=== PATIENT | female | born 1980 | race Caucasian/White ===

== ENCOUNTER 2016-08-31 09:30 | Emergency (ER) | payer OTHER ==
[2016-08-31 09:45] VITALS: BP 135/77; PULSE 78; RESP 18; TEMP 98.9
--- NOTE | 2016-08-31 10:13 | ED ---
General Adult HPI - General Chief complaint: Back Pain/Injury Stated complaint: low back pain Time Seen by Provider: 08/31/16 10:02 Source: patient, RN notes reviewed Mode of arrival: ambulatory Limitations: no limitations - History of Present Illness Initial comments: Patient's 36-year-old female seen a few past medical history for chronic back pain, who presents emergency room today with a chief exacerbation of her chronic pain. She does admit that she was moving over the weekend. She states that she did not have a specific injury or trauma but began having increased pain left side and lower back. Does admit to a history of a bulging disc. Denies any bowel or bladder incontinence retention. Denies any saddle anesthesia. Denies any lumbar radiculopathy. Patient does admit that pain is worse with movements. States she's been using Motrin 800 mg with some relief the symptoms. Patient denies any recent fever, chills, shortness of breath, chest pain, abdominal pain, nausea or vomiting, numbness or tingling, dysuria or hematuria, constipation or diarrhea, headaches or visual changes, or any other complaints. - Related Data Previous Rx's Medication Instructions Recorded Cyclobenzaprine [Flexeril] 10 mg PO TID #20 tab 08/31/16 Ibuprofen [Motrin] 800 mg PO Q6HR PRN #30 tab 08/31/16 Allergies Allergy/AdvReac Type Severity Reaction Status Date / Time No Known Allergies Allergy Verified 08/31/16 09:45 Review of Systems ROS Statement: Those systems with pertinent positive or pertinent negative responses have been documented in the HPI. ROS Other: All systems not noted in ROS Statement are negative. Past Medical History Additional Past Medical History / Comment(s): chronic back pain History of Any Multi-Drug Resistant Organisms: None Reported Past Surgical History: Tubal Ligation Past Psychological History: Bipolar, Depression Smoking Status: Current every day smoker Past Alcohol Use History: None Reported Past Drug Use History: None Reported General Exam - General Exam Comments Initial Comments: General: The patient is awake and alert, in no distress, and does not appear acutely ill. Eye: Pupils are equal, round and reactive to light, extra-ocular movements are intact. No nystagmus. There is normal conjunctiva bilaterally. No signs of icterus. Ears, nose, mouth and throat: There are moist mucous membranes and no oral lesions. Neck: The neck is supple, there is no tenderness or JVD. Cardiovascular: There is a regular rate and rhythm. No murmur, rub or gallop is appreciated. Respiratory: Lungs are clear to auscultation, respirations are non-labored, breath sounds are equal. No wheezes, stridor, rales, or rhonchi. Musculoskeletal: Normal ROM. Normal appearance of thoracic, lumbar spine. No step-offs forms appreciated. Patient has no tenderness over the spinous processes. Patient does have paravertebral tenderness left side of the lower lumbar at L3 to L5. Strength 5/5. Sensation intact. Pulses equal bilaterally 2+ . Neurological: A&O x 3. CN II-XII intact, There are no obvious motor or sensory deficits. Coordination appears grossly intact. Speech is normal. Skin: Skin is warm and dry and no rashes or lesions are noted. Psychiatric: Cooperative, appropriate mood & affect, normal judgment. Limitations: no limitations Course Vital Signs 08/31/16 09:41 Temperature 98.9 F Pulse Rate 78 Respiratory 18 Rate Blood Pressure 135/77 O2 Sat by Pulse 99 Oximetry Medical Decision Making - Medical Decision Making A MAPS report And shows the patient did receive 12 [place] 5/325 on 08/18/2016 and 10 Tylenol with codeine on 08/17/2016. Patient did not request any narcotic pain medications here. Advised patient that we would like to try a muscle relaxer for her symptoms. We'll prescribe Motrin 800 mg again she states she is running low. Disposition Clinical Impression: Acute exacerbation of chronic low back pain Disposition: HOME SELF-CARE Condition: Good Instructions: Chronic Back Pain (ED) Additional Instructions: Please use medication as discussed. Please follow-up with family doctor in the next 2 days of symptoms have not improved. Please return to emergency room if the symptoms increase or worsen or for any other concerns. Prescriptions: Cyclobenzaprine [Flexeril] 10 mg PO TID #20 tab Ibuprofen [Motrin] 800 mg PO Q6HR PRN #30 tab PRN Reason: Pain Time of Disposition: 10:12
== END 2016-08-31 10:25 | disposition home or self-care (01) ==
LOC: EC 09:30
DX: M54.5 Low back pain (principal); G89.29 Other chronic pain; F17.200 Nicotine dependence, unspecified, uncomplicated
CPT/HCPCS: 99282

== ENCOUNTER 2016-09-05 15:51 | Emergency (ER) | payer OTHER ==
[2016-09-05 15:55] VITALS: BP 139/83; PULSE 80; RESP 20; TEMP 98.7
[2016-09-05] MEDS ORDERED: IBUPROFEN 800 MG TAB PO STA (15:59)
--- NOTE | 2016-09-05 16:07 | ED ---
Lower Extremity Injury HPI - General Chief Complaint: Extremity Injury, Lower Stated Complaint: Fell/Ankle Pain Time Seen by Provider: 09/05/16 15:55 Source: patient Mode of arrival: wheelchair Limitations: no limitations - History of Present Illness Initial Comments: Patient is a 36-year-old female presenting to the emergency department with complaints of right ankle pain. Onset of injury approximately 1 hour ago. Patient states she was exiting her car and went to get her baby out of the car seat when she tripped over possibly a curb. Patient states she was unable to ambulate at the scene of injury and unable to bear weight on her right foot in the emergency department. Patient reports hearing a snap to her right ankle. Patient unsure of exact mechanism of injury. Patient currently complains of right ankle pain described as sharp and rated 10 out of 10. Patient also reports numbness and tingling in her right ankle. Patient reports previous history of right ankle fracture. Patient denies chills, fevers, nausea , vomiting, shortness of breath, chest pain, or abdominal pain. Patient denies any significant medical history. Patient states she was treated with antibiotics for tooth infection in the last 30 days. Patient denies any treatment prior to arrival. - Related Data Home Medications Medication Instructions Recorded Confirmed Sertraline [Zoloft] 1 tab PO DAILY 09/05/16 09/05/16 Previous Rx's Medication Instructions Recorded HYDROcodone/APAP 5-325MG [[place] 1 tab PO Q4HR PRN #20 tab 09/05/16 5-325] Ibuprofen [Motrin] 800 mg PO Q8HR PRN #20 tab 09/05/16 Allergies Allergy/AdvReac Type Severity Reaction Status Date / Time No Known Allergies Allergy Verified 09/05/16 15:55 Review of Systems ROS Statement: Those systems with pertinent positive or pertinent negative responses have been documented in the HPI. ROS Other: All systems not noted in ROS Statement are negative. Past Medical History Additional Past Medical History / Comment(s): chronic back pain History of Any Multi-Drug Resistant Organisms: None Reported Past Surgical History: Tubal Ligation Past Psychological History: Bipolar, Depression Smoking Status: Current every day smoker Past Alcohol Use History: None Reported Past Drug Use History: None Reported General Exam Limitations: no limitations General appearance: alert, in no apparent distress Head exam: Present: atraumatic, normocephalic, normal inspection Eye exam: Present: normal appearance ENT exam: Present: normal exam, mucous membranes moist, normal external ear exam Neck exam: Present: normal inspection, full ROM Respiratory exam: Present: normal lung sounds bilaterally. Absent: respiratory distress, wheezes, rales, rhonchi Cardiovascular Exam: Present: regular rate, normal rhythm, normal heart sounds GI/Abdominal exam: Present: soft, normal bowel sounds. Absent: distended, tenderness Right Knee exam: Present: normal inspection, full ROM. Absent: tenderness, swelling Lower Leg exam: Present: normal inspection, full ROM. Absent: tenderness, swelling Ankle exam: Present: tenderness (Tenderness and swelling noted to lateral aspect of malleolus.), swelling. Absent: full ROM (Secondary to pain), ecchymosis, deformity Foot/Toe exam: Present: full ROM, swelling (Slight swelling inferior to right malleolus). Absent: ecchymosis, puncture wound, calcaneal tenderness, tenderness at base of 5th metatarsal, nail avulsion, subungual hematoma Neurovascular tendon exam: Present: no vascular compromise, significant pain with passive ROM of distal joint. Absent: pulse deficit, abnormal cap refill, motor deficit, sensory deficit, tendon deficit, extremity cold to touch, pallor , abnormal 2-point discrimination, foot drop Gait: not tested/not observed Course Vital Signs 09/05/16 15:53 Temperature 98.7 F Pulse Rate 80 Respiratory 20 Rate Blood Pressure 139/83 O2 Sat by Pulse 100 Oximetry Medical Decision Making - Medical Decision Making Acute trauma malleolus fracture to right lower extremity. Patient placed in a stirrup splint. Patient provided with prescriptions for NSAID and opiate. Patient provided with prescription for crutches. Patient instructed to maintain nonweightbearing status to right lower extremity. Splint care instructions provided. Patient instructed to follow-up with orthopedic service on Wednesday and primary care physician as needed. Patient agrees with plan of care. Discharge instructions and return parameters reviewed. - Radiology Data Radiology results: report reviewed X-ray right ankle: Acute minimally displaced oblique fracture through the lateral malleolus. Acute nondisplaced transverse fracture through the posterior malleolus. Oblique displaced fracture through the posterior malleolus. Mild to moderate associated soft tissue swelling is seen. Ankle mortise is symmetry is preserved. cccccccccccccccccccccccccccccccccccccccccccccccccccccccccccccccccccccccccccccccc [facility]ccccccccccccccccccccccccccccccccccccccccccccccccccccccccccccccccc [facility]cccccccccccccccccccc[facility]cccccccccccccccccccccccccccccccccccccccccccccccccccccccccccccccccccccc [facility]cccccccccccccccccccccccccccccccccccccccccccccccccccccccccccccccccccc[facility] Disposition Clinical Impression: Fracture of ankle, trimalleolar Disposition: HOME SELF-CARE Condition: Good Instructions: Splint Care (ED), Ankle Fracture (ED) Additional Instructions: Maintain nonweight bearing to right foot and avoid activity that causes pain, use crutches. Apply ice 20 minutes four times a day for next 48 hrs Keep right leg elevated as much as possible for next 24-48 hours. Continue prescribed anti-inflammatory and opiates. Return to the emergency department with symptoms of increased swelling, pain, numbness, tingling, or foot feeling cold to touch. Follow-up with primary service and orthopedic service as directed. Prescriptions: HYDROcodone/APAP 5-325MG [[place] 5-325] 1 tab PO Q4HR PRN #20 tab PRN Reason: Pain Ibuprofen [Motrin] 800 mg PO Q8HR PRN #20 tab PRN Reason: Pain Referrals: Miguel Angel Rodriguez MD [Primary Care Provider] - 1-2 days Ion Paul MD [STAFF PHYSICIAN] - 1-2 days Time of Disposition: 17:18
[2016-09-05] MEDS ORDERED: HYDROcodone/APAP 5-325MG 1 EACH TAB PO STA (16:45)
--- NOTE | 2016-09-05 16:49 | XR ---
EXAMINATION TYPE: XR ankle complete RT DATE OF EXAM: 09/05/2016 4:08 PM CLINICAL HISTORY: Trip and fall injury today with pain and swelling. TECHNIQUE: Frontal, lateral and oblique images of the right ankle are obtained. COMPARISON: None. FINDINGS: There is acute minimally displaced oblique fracture through the lateral malleolus. There i s acute nondisplaced transverse fracture through the posterior malleolus. There is a oblique displace d fracture through the posterior malleolus. Mild to moderate associated soft tissue swelling is seen. Ankle mortise symmetry is preserved. IMPRESSION: There is acute trimalleolar fracture. (Initial encounter close type post traumatic fracture)
== END 2016-09-05 17:26 | disposition home or self-care (01) ==
LOC: EC 15:51
DX: S82.851A Displaced trimalleolar fracture of right lower leg, initial encounter for closed fracture (principal); F31.9 Bipolar disorder, unspecified; Z79.899 Other long term (current) drug therapy; V48.4XXA Person boarding or alighting a car injured in noncollision transport accident, initial encounter
CPT/HCPCS: 29515; 99283

== ENCOUNTER → 2016-09-08 | Outpatient (CLI) | payer OTHER ==
--- NOTE | 2016-09-08 11:52 | CT ---
EXAMINATION TYPE: CT ankle RT wo con DATE OF EXAM: 09/08/2016 9:35 AM COMPARISON: Radiographs 09/05/2016 HISTORY: 36-year-old female further evaluation for right ankle fracture. TECHNIQUE: Contiguous axial scanning of the right ankle without IV contrast. Coronal and sagittal rec onstructions performed. Radiographic instructions generated on a dedicated independent workstation. CT DLP: 185.1 mGycm Automated exposure control for dose reduction was used. FINDINGS: Overlying cast material. Diffuse soft tissue swelling is present. There is a comminuted oblique fracture of the distal fibula with minimal posterior displacement. Minimally impacted, nondisplaced fracture of the posterior malleolus with tibial articular surface st ep-off along the tibiotalar joint of 2.3 mm, sagittal image 23. The posterior malleolar fracture frag ment measures 2.0 cm wide and 1.9 cm craniocaudal. Additional comminuted fracture of the medial malleolus with a prominent vertical component extending up to the metadiaphyseal level. One of the 8 mm small bone fragments show some anterior regional disp lacement. Otherwise, no significant displacement is seen. Ankle mortise remains congruent. Talar dome is intact. No loose bodies seen interposed within the tib iotalar joint. Large underlying ankle joint effusion. No additional acute fracture or dislocation seen. IMPRESSION: 1. UNSTABLE TRIMALLEOLAR ANKLE FRACTURES WITH DIFFUSE SOFT TISSUE SWELLING AND UNDERLYING ANKLE JOINT EFFUSION. 2. BOTH THE OBLIQUE DISTAL FIBULAR FRACTURE AND THE VERTICAL MEDIAL MALLEOLAR FRACTURES SHOW MILD COM MINUTION. THERE IS MINIMAL DISPLACEMENT OF THE LATERAL MALLEOLUS FRACTURE AND AN 8 MM BONE FRAGMENT A NTERIORLY AT THE MEDIAL MALLEOLUS SHOWING SOME MILD REGIONAL DISPLACEMENT. 3. THE POSTERIOR MALLEOLAR FRACTURE RESULTS IN 2 MM OF ARTICULAR SURFACE STEP-OFF ALONG THE POSTERIOR TIBIOTALAR JOINT.
== END | disposition home or self-care (01) ==
LOC: RADCTMAIN 09:07
PROVIDERS: ATTEND Orthopaedic Surgery
DX: S82.851D Displaced trimalleolar fracture of right lower leg, subsequent encounter for closed fracture with routine healing (principal); S82.51XD Displaced fracture of medial malleolus of right tibia, subsequent encounter for closed fracture with routine healing

== ENCOUNTER 2016-09-18 12:26 | Day surgery (SDC) | payer OTHER ==
[2016-09-17 11:28] VITALS: BMI 28.3
[~2016-09-18 12:26] MED LIST: DEXAMETHASONE SOD PHOSPHATE 10 MG/ML 1 ML VIAL IV ONE; LACTATED RINGERS 1,000 ML IV SCH; MIDAZOLAM 2 MG/2 ML VIAL IV PRN; ONDANSETRON 4 MG/2 ML VIAL IVP ONE; SCOPOLAMINE 1.5MG/72HR PATCH TRANSDERM ONE; ceFAZolin 2 GM in SODIUM CHLORIDE 0.9% 100 ML IVPB ONE
[2016-09-18] MEDS ORDERED: LIDOCAINE 1% 20 ML VIAL (10MG/ML) FOR IV START INTRADERMA ONE (13:21)
[2016-09-18 14:19] LABS: CH 28.9; CHCM 33.9; HCT 38.2 % (34.0-46.0); HDW 3.15; HGB 12.5 gm/dL (11.4-16.0); MCH 28.2 pg (25.0-35.0); MCHC 32.8 g/dL (31.0-37.0); MCV 85.7 fL (80.0-100.0); RBC 4.45 m/uL (3.80-5.40); WBC 6.7 k/uL (3.8-10.6)
[2016-09-18] MEDS ORDERED: NEOSTIGMINE 1 MG/ML 10 ML VIAL ONE (15:09)
[2016-09-18] MEDS ORDERED: ROCURONIUM BROMIDE 10 MG/ML 10 ML VIAL IV ONE (15:09)
[2016-09-18] MEDS ORDERED: SUCCINYLCHOLINE CHLORIDE 100 MG/5 ML SYR IV ONE (15:09)
[2016-09-18] MEDS ORDERED: MIDAZOLAM 2 MG/2 ML VIAL ONE (15:09)
[2016-09-18] MEDS ORDERED: MORPHINE SULFATE 10 MG/ML SYRINGE ONE (15:09)
[2016-09-18] MEDS ORDERED: LIDOCAINE 1% INJ 10MG/ML (20 ML MDV) ONE (15:09)
[2016-09-18] MEDS ORDERED: fentaNYL (PF) 50 MCG/ML 2 ML AMP ONE (15:09)
[2016-09-18] MEDS ORDERED: ePHEDrine 50 MG/ML 1 ML AMP ONE (15:09)
[2016-09-18] MEDS ORDERED: PROPOFOL 10 MG/ML 20 ML VIAL IV ONE (15:09)
[2016-09-18] MEDS ORDERED: PHENYLEPHRINE-0.9% NACL SYG 1 MG/10 ML SYRINGE ONE (15:09)
[2016-09-18] MEDS ORDERED: GLYCOPYRROLATE 0.2 MG/ML 2 ML VIAL ONE (15:09)
[2016-09-18] MEDS ORDERED: LACTATED RINGERS 1,000 ML IV ONE (15:53)
--- NOTE | 2016-09-18 16:59 | XR ---
FLUOROSCOPY 25 seconds of fluoroscopy time were utilized during internal fixation of the right ankle. 3 images do cument the procedure.
[2016-09-18 17:09] VITALS: TEMP 98.6
--- NOTE | 2016-09-18 17:16 | P.OP ---
Date of Procedure: 09/18/16 Preoperative Diagnosis: 1. Closed malleolus ankle fracture right 2. Current every day cigarette smoker Postoperative Diagnosis: 1. Closed right trimalleolar ankle fracture 2. Current everyday cigarette smoker Procedure(s) Performed: 1. Open reduction internal fixation right trimalleolar ankle fracture (open reduction and internal fixation of lateral and medial malleolus, nonoperative management posterior malleolus fracture) 2. Manual application of joint stress for radiography by physician Anesthesia: ZUNILDA Surgeon: Jamari Brody Plaster Foreman #1: Omar Vargas Estimated Blood Loss (ml): 10 IV fluids (ml): 1,500 Pathology: none sent Condition: stable Disposition: PACU Indications for Procedure: Patient is a 36-year-old female with a medical history significant for cigarette smoking. Stained an isolated injury to her right ankle 2 weeks ago. She was seen in the office were x-rays showed a trimalleolar ankle fracture. The patient had a computed tomography scan preoperatively. The computed tomography scan showed a Fang B fibula fracture and a comminuted medial malleolus fracture with a vertical shear component. The posterior malleolus fracture was less than 25% of the joint surface. My recommendation for surgery was open reduction and internal fixation of both the medial and lateral malleolus. We discussed potential risks and Application of surgery including but not limited to risk of anesthesia, risk of superficial infection, risk of deep infection, risk of delayed wound healing, risk of wound necrosis, fracture nonunion, fracture malunion, symptomatically hardware, chronic pain, chronic swelling, risk of damage to local sensory nerves resulting in temporary or permanent numbness, risk of difficulty ambulating, risk of inability to ambulate Description of Procedure: And fin preoperative holding and the correct right ankle was marked with my initials. I reviewed the consent form with the patient and her and all of their questions were answered. The patient was then brought back to the operating room by anesthesia. She was positioned on the operating room table and a general anesthetic was administered. A tourniquet was applied to the proximal aspect of the right thigh. The left leg was secured to the operating table with egg foam and tape. A bone foam ramp was placed under her leg aiding her leg and a bump was placed under her right buttock internally rotating her right side. The patient's right leg was then prepped and draped in the standard sterile fashion. She was given preoperative antibiotics. The right leg then elevated, exsanguinated with an Esmarch bandage and the tourniquet was inflated to 250 mmHg. A longitudinal incision centered over the lateral aspect of the fibula was marked with a skin marker. Skin incision was made with a 15 blade scalpel and dissection was carried down carefully with tenotomy scissors to the fascia overlying the fibula which was sharply incised. The fracture site was exposed. The fracture site was gently distracted and debrided of consolidating hematoma and early callus. Once the fracture was adequately exposed and debrided a gentle longitudinal reduction was reamed and the fracture site was gently clamped with a [id number] reduction clamp. C-arm was brought in to verify reduction of the fibula. The fibula appeared to be out to length and the medial clear space was reduced. I then placed an anterior to posterior lag screw across the fracture. Using a to 2.7 drill bit a gliding hole was greater in the anterior cortex the proximal fragment and a 2.0 drill bit was used to create a threaded hole in the posterior cortex of the distal fragment. We threaded 2.7 mm screw was placed across the fracture site generating excellent compression. I then placed a 7-hole one third tubular plate over the lateral aspect of the fibula as a neutralization type device. A 3.5 was placed just proximal to the fracture bringing the plate down to bone. I then placed 35 screw in the most proximal hole of the plate making sure the plate was centered on the fibula. I then proceeded to place cancellus 3.5 mm screws in the distal 2 holes of the plate. An additional 35 screw was placed proximal to the fracture in the third hole of the plate. C-arm was then brought in to verify position of the hardware on both the AP and lateral views. The fibula fracture appeared to be nicely reduced, out to length and the hardware and except fill position. Attention was then turned to the medial malleolus fracture. A longitudinal incision centered over the medial malleolus was made with a 15 blade scalpel and dissection was carried down carefully through subcutaneous tissue. Branches of the saphenous vein were controlled with electrocautery. The fascia was longitudinally incised in line with the skin incision. Dissection was carried anteriorly to the shoulder of the joint. There is a small area of marginal impaction and a loose osteochondral fragment which was debrided. A 2.0 mm drill bit was used to create a single hole in the distal tibia. I point to point reduction clamp was then placed with 1 santa in this drilled hole and 1 santa at the tip of the anterior colliculus fragment. Due to the size of the fragment I elected to place a 2.7 mm screw. A 2.0 mm drill bit was used to create a path in the anterior colliculus up into the distal tibial metaphysis. A fully threaded 2.7 mm screw measuring 55 mm in length was placed I then exposed the vertical shear component on the posterior medial aspect of the tibia. It was gently debrided and teased back into place. A 6-hole one third tubular plate was placed over the posteromedial border of the tibia as an anti- glide device. The plate was contoured to fit along the medial border of the tibia. In the third hole of the plate just proximal to the spike of the vertical shear component a 35 screw was placed. I then placed a 3.5 screw through the most proximal hole of the plate angled proximally. I then placed a 35 screw in the fifth hold the plate parallel to the joint surface. C-arm fluoroscopy was then brought in. On the mortise view the talus appeared to be well reduced within the ankle mortise. A manual external rotation stress x-ray was performed. There is no opening of the medial clear space or widening at the incisor up. I interpreted this as a stable cysts. A lateral x-ray was then taken. The talus was centered under the plafond and there is minimal displacement of the posterior malleolus fracture. At this point both medial and lateral wounds were copiously irrigated. The fascia was closed in both incisions over the hardware with a running 0 Vicryl stitch. The deep subcu was reapproximated using 2-0 Vicryl. The skin was closed using 3-0 nylon. The tourniquet was let down. Stretchy Steri-Strips were placed between the stitches. A sterile dressing consisting of Betadine soaked Adaptic, 4 x 4, and web roll was applied. A very well-padded bulky Garcia splint was applied. The drapes were taken down and the [place] was [place] and brought to PACU having santa of the procedure well. At the end of surgery all instrument, sharp, and sponge counts were correct. Omar Vargas PA-C was required is a skilled prosthetics assistant for patient positioning, exposure, retraction, placement of hardware, closure of surgical wounds, and placement of splint. Plan: The patient to discharge home as an outpatient. She was instructed on normal splint maintenance including keeping her splint clean and dry. She is remain strictly nonweightbearing on her right ankle pitch will follow-up in the office in 2 weeks for splint removal, wound exam, and x-rays..
[2016-09-18] MEDS: HYDROmorphone 1 MG/ML 1 ML SYRINGE IVP PRN ×2 (17:20→17:29)
--- NOTE | 2016-09-18 18:08 | P.ONQ ---
Anesthesiology Proc Note - PNB - Peripheral Nerve Block Performed Right Popliteal Single Time Out Performed: Yes Procedure Start Time: 05:50 Indication: Acute Post-Operative Pain Sedation Type: Sedate with meaningful contact maintained Preparation: Sterile Prep Position: Supine Needle Size: 100mm (4") Needle Gauge: 20 Technique: Ultrasound Injectate: 0.5% Ropivacaine (see comment for volume) Blood Aspirated: No Pain Paresthesia on Injection Noted: No Resistance on Injection: Normal Events: Uneventful and Well Tolerated
[2016-09-18 19:18] VITALS: BP 119/71; PULSE 95; RESP 18
== END 2016-09-18 19:17 | disposition home or self-care (01) ==
LOC: OR 12:26
PROVIDERS: ATTEND Orthopaedic Surgery
DX: S82.851A Displaced trimalleolar fracture of right lower leg, initial encounter for closed fracture (principal); W19.XXXA Unspecified fall, initial encounter; I10 Essential (primary) hypertension; F41.0 Panic disorder [episodic paroxysmal anxiety]; F31.9 Bipolar disorder, unspecified; Z98.51 Tubal ligation status; F17.210 Nicotine dependence, cigarettes, uncomplicated; Z79.1 Long term (current) use of non-steroidal anti-inflammatories (NSAID); Z79.899 Other long term (current) drug therapy
CPT/HCPCS: 85027; 84703; 73600; 27814; 77071; C1713; J2250; J1100; J2710; J2270; J0690; J2405; J2001; J3010; J1170; J2370; J0330; J2704